=== PATIENT | female | born 1990 | race African-American/Black ===

== ENCOUNTER 2018-04-26 12:39 | Emergency (ER) | payer SELFPAY ==
[2018-04-26] MEDS ORDERED: Ondansetron ODT 4 MG TAB ONE (13:04)
[2018-04-26 13:18] LABS: Pregnancy Test - Urine (BHCG) Negative (Negative); Pregu Control Background? CLEAR/WHITE (CLR/WHITE); Pregu Control Bar Appear? YES (CONTROL BAR)
[2018-04-26 13:57] LABS: Bilirubin Negative (Negative); Blood, Urine Negative (Negative); Clarity CLEAR (Clear); Glucose, Urine (Dipstick) Negative (Negative); Leukocyte Negative (Negative); Nitrite Negative (Negative); Protein, Urine (Dipstick) Negative (Neg-Trace); pH, Urine 6.5 (5.0-9.0)
== END 2018-04-26 14:33 | disposition home or self-care (01) ==
LOC: ERS 12:39
DX: R11.2 Nausea with vomiting, unspecified (principal); F17.210 Nicotine dependence, cigarettes, uncomplicated
CPT/HCPCS: 81003; 81025; 99284; Q0162

== ENCOUNTER 2019-12-15 08:27 | Emergency (ER) | payer BC ==
[2019-12-15 08:56] LABS: #Lymphocytes 1.3 thou/uL (1.20-3.40); #Monocytes 0.4 thou/uL (0.11-0.59); #Neutrophils 3.3 thou/uL (1.40-6.50); %Basophils 0.7 % (0.0-1.0); %Eosinophils 0.7 % (0.0-10.0); %Lymphocytes 25.5 % (21.0-51.0); %Monocytes 8.1 % (0.0-10.0); %Neutrophils 64.9 % (42.0-75.0); Hemoglobin 11.9 g/dL (12.0-16.0); Mean Corpuscular HGB CONC 33.1 g/dL (32.0-36.0); Mean Corpuscular Hemoglobin 30.4 pg (27.0-31.0); Mean Platelet Volume 8.2 fL (7.4-10.4); Platelet Count 181 thou/uL (130-400); RBC Distribution Width 12.1 % (11.5-14.5); Red Blood Cell (RBC) Count 3.92 mill/uL (4.20-5.40); White Blood Cell (WBC) Count 5.1 thou/uL (4.8-10.8)
--- NOTE | 2019-12-15 09:38 | ULT ---
Obstetric sonogram HISTORY: Early . Pelvic pain and cramping. FINDINGS: Single intrauterine gestation in variable presentation. Measurements correlate with 10 week s 6 days gestational age giving an estimated date of delivery of 07/06/2020. Amniotic fluid is within normal limits. Heart motion at 162 bpm. Small yolk sac remains. Minimal fluid in the cervix. N o free fluid in the pelvis. The ovaries are not visualized with transabdominal or transvaginal imaging. IMPRESSION: Single intrauterine gestation. Estimated gestational age 10 weeks 6 days. No significant abnormalities are demonstrated.
[2019-12-15] MEDS ORDERED: Acetaminophen 500 MG TAB ONE (10:00)
[2019-12-15 10:12] LABS: Bilirubin Negative (Negative); Blood, Urine Negative (Negative); Glucose, Urine (Dipstick) Negative (Negative); Leukocyte Negative (Negative); Nitrite Negative (Negative); Protein, Urine (Dipstick) Negative (Neg-Trace)
[2019-12-15 10:13] LABS: Clarity Clear (Clear)
[2019-12-18 00:54] LABS: Chlamydia by PCR Not Detected (NotDetected); GC by PCR Not Detected (NotDetected)
== END 2019-12-15 10:30 | disposition home or self-care (01) ==
LOC: ERS 08:27
DX: O20.0 Threatened abortion (principal); O23.591 Infection of other part of genital tract in pregnancy, first trimester; B96.89 Other specified bacterial agents as the cause of diseases classified elsewhere; Z3A.10 10 weeks gestation of pregnancy
CPT/HCPCS: 36415; 76856; 81003; 84702; 85025; 86900; 86901; 87480; 87491; 87510; 87591; 87660

== ENCOUNTER 2020-04-06 14:46 | Emergency (ER) | payer BC, OTHER ==
[~2020-04-06 14:46] MED LIST: Iopamidol 370 76% 50 ML VIAL FS ONE; Iopamidol-370 76% 500 ML 1 ML ONE
[2020-04-06] MEDS ORDERED: Morphine 4 MG/ML VIAL ONE (15:10)
[2020-04-06] MEDS ORDERED: Ondansetron PF 4 MG/2 ML Vial ONE (15:10)
[2020-04-06 15:18] LABS: #Basophils 0.1 thou/uL (0.0-0.2); #Lymphocytes 1.5 thou/uL (1.20-3.40); #Monocytes 0.3 thou/uL (0.11-0.59); #Neutrophils 2.6 thou/uL (1.40-6.50); %Basophils 1.2 % (0.0-1.0); %Eosinophils 0.8 % (0.0-10.0); %Lymphocytes 33.7 % (21.0-51.0); %Monocytes 7.4 % (0.0-10.0); Hemoglobin 11.7 g/dL (12.0-16.0); Mean Corpuscular HGB CONC 33.3 g/dL (32.0-36.0); Mean Corpuscular Hemoglobin 30.5 pg (27.0-31.0); Mean Corpuscular Volume 91.6 fL (78.0-98.0); Mean Platelet Volume 8.8 fL (7.4-10.4); Platelet Count 171 thou/uL (130-400); RBC Distribution Width 10.9 % (11.5-14.5); Red Blood Cell (RBC) Count 3.83 mill/uL (4.20-5.40); White Blood Cell (WBC) Count 4.5 thou/uL (4.8-10.8)
[2020-04-06 15:28] LABS: BHCG - Serum Negative (NEGATIVE); Pregs Control Background? CLEAR/WHITE (CLR/WHITE); Pregs Control Bar Appear? YES (CONTROL BAR)
[2020-04-06 15:35] LABS: ALT (SGPT) 12 U/L (8-55); AST (SGOT) 17 U/L (5-34); Albumin 3.8 g/dL (3.5-5.0); Alkaline Phosphatase 35 U/L (40-110); Anion Gap 10 mmol/L (10-20); BUN (Urea Nitrogen) 13 mg/dL (7.0-18.7); Bilirubin, Total 0.7 mg/dL (0.2-1.2); Calc. Creatinine Clearance 0 mL/min (70-130); Calcium 8.9 mg/dL (7.8-10.44); Carbon Dioxide 24 mmol/L (22-29); Chloride 104 mmol/L (98-107); Estimated GFR-MDRD 89; Globulin 3.3 g/dL (2.4-3.5); Glucose 77 mg/dL (70-105); Potassium 3.8 mmol/L (3.5-5.1); Protein, Total 7.1 g/dL (6.0-8.3); Sodium 134 mmol/L (136-145)
[2020-04-06 15:45] LABS: Bilirubin Negative (Negative); Blood, Urine Negative (Negative); Clarity Clear (Clear); Glucose, Urine (Dipstick) Normal (Negative); Ketone, Urine Negative (Negative); Leukocyte Negative Leu/uL (Negative); Nitrite Negative (Negative); Protein, Urine (Dipstick) Negative (Neg-Trace); Specific Gravity, Urine 1.024 (1.002-1.036)
--- NOTE | 2020-04-06 16:21 | CT ---
CT ABDOMEN WITH CONTRAST CT PELVIS WITH CONTRAST: DATE: 04/06/2020 HISTORY: 29-year-old female with acute onset of right lower quadrant abdominal pain. Dr. Hillman discussed the findings and recommendation by telephone with practitioner Wendy Garzon at 4:07 PM 04/06/2020. COMPARISON: None TECHNIQUE: IV injection of iodinated contrast media: administered. Oral contrast media:Not administered FINDINGS: Lack of visceral fat makes it difficult to separate small bowel loops from appendix without oral cont rast. There is a tubular structure in the right lower quadrant of the abdominal cavity at the pelvic inlet with a caliber of 9 mm. It is uncertain whether this is an inflamed appendix or a collapsed loop of ileum. The former is slightly favored. There is no abscess, pneumoperitoneum or small bowel dilation. Moderately large amount of colonic stool throughout the colon. Ring shaped lucency in the vaginal cavity is probably a pessary. Urinary bladder is incompletely distended. Small amount of free fluid in cul-de-sac sac is probably physiologic in a female patient of this age. Abdominal aorta, kidneys, liver, spleen, pancreas, and adrenals, are unremarkable. Lung bases are renay ar. IMPRESSION: 1) equivocal for early acute appendicitis. Depending on the preference of the consulting general surg jaylen, this could be further evaluated after administration of water-soluble oral contrast followed by delayed CT scan of the lower abdomen and pelvis in 1.5 to 2 hours. 2) pessary 3) possible constipation
[2020-04-06] MEDS ORDERED: Ketorolac Tromethamine 30 MG/ML VIAL ONE (16:31)
--- NOTE | 2020-04-06 20:16 | CT ---
CT ABDOMEN WITH CONTRAST CT PELVIS WITH CONTRAST: DATE: 04-06-2020 TIME: 7:11 P.M. HISTORY: 29-year-old female with right lower quadrant abdominal pain. Earlier study performed at 3:50 p.m. was equivocal for acute appendicitis. TECHNIQUE: IV iodinated contrast media: Repeat injection of 80 mL Isovue 370 Oral contrast media: PO Isovue Single phase abdomen and pelvis. FINDINGS: The presence of oral contrast material demonstrates that what was thought to be the cecum on the yamilet ier CT is actually of a portion of a very redundant, ptotic transverse colon reaching the pelvic inle t. What was thought to be an inflamed appendix near that in the right lower quadrant at the pelvic in let is no longer visualized, and was consistent with a collapsed loop of ileum. The oral contrast also demonstrates that the cecum is actually located high in the right upper quadra nt of the abdominal cavity. From it, an air filled, normal long appendix arises, with distal tip in M orrison's pouch. No adjacent fat stranding. IMPRESSION: 1. Normal appendix located high in the right upper quadrant of the abdominal cavity arising from a hi gh cecum. 2. Redundant, ptotic transverse colon. 3. No acute pathology. TRACY Proctor POS: TOSHA
[2020-04-07 21:07] LABS: Chlamydia by PCR Not Detected (NotDetected); GC by PCR Not Detected (NotDetected)
== END 2020-04-06 20:42 | disposition home or self-care (01) ==
LOC: ERS 14:46
DX: R10.31 Right lower quadrant pain (principal)
CPT/HCPCS: 36415; 74177; 80053; 81003; 83605; 84703; 85025; 87480; 87491; 87510; 87591; 87660; 96361; 96374; 96375; J1885; J2270; J2405; Q9967

== ENCOUNTER → 2020-09-23 | Emergency (ER) | payer BC ==
[2020-09-23 06:08] LABS: SARS-CoV-2 MS2 Positive; SARS-CoV-2 N Gene Negative; SARS-CoV-2 S Gene Negative; SARS-CoV-2 by NAA Not Detected (NotDetected); SARS-CoV-2 orf1ab Negative
== END ==
LOC: ERS 01:21
DX: J02.9 Acute pharyngitis, unspecified (principal); R05 Cough; R11.2 Nausea with vomiting, unspecified; Z20.828 Contact with and (suspected) exposure to other viral communicable diseases; F17.210 Nicotine dependence, cigarettes, uncomplicated
CPT/HCPCS: 87635; 99283; U0003

== ENCOUNTER 2022-11-27 19:05 | Inpatient (IN) | payer BC, OTHER ==
[~2022-11-27 19:05] MED LIST changes: -Iopamidol 370 76% 50 ML VIAL FS ONE
[2022-11-27] MEDS ORDERED: Ketorolac Tromethamine 30 MG/ML VIAL ONE (19:48)
[2022-11-27] MEDS ORDERED: Ondansetron PF 4 MG/2 ML Vial ONE (19:48)
[2022-11-27] MEDS ORDERED: Dicyclomine 20 MG/2 ML VIAL ONE (19:49)
[2022-11-27] MEDS ORDERED: HYDROmorphone 0.5 MG/0.5 ML SYRINGE ONE ×2 (20:00→22:02)
[2022-11-27 20:05] LABS: #Basophils 0.1 thou/uL (0.0-0.2); #Eosinphils 0.2 thou/uL (0.0-0.7); #Lymphocytes 1.8 thou/uL (1.20-3.40); #Monocytes 0.5 thou/uL (0.11-0.59); #Neutrophils 4.5 thou/uL (1.40-6.50); %Basophils 0.8 % (0.0-1.0); %Lymphocytes 26.1 % (21.0-51.0); %Monocytes 6.7 % (0.0-10.0); %Neutrophils 63.5 % (42.0-75.0); Hemoglobin 11.4 g/dL (12.0-16.0); Mean Corpuscular HGB CONC 33.8 g/dL (32.0-36.0); Mean Corpuscular Hemoglobin 31.6 pg (27.0-31.0); Mean Corpuscular Volume 93.6 fl (78.0-98.0); Mean Platelet Volume 7.4 fL (7.4-10.4); Platelet Count 398 10x3/uL (130-400); RBC Distribution Width 11.7 % (11.5-14.5); Red Blood Cell (RBC) Count 3.59 mill/uL (4.20-5.40)
[2022-11-27 20:28] LABS: ALT (SGPT) 25 U/L (8-55); AST (SGOT) 41 U/L (5-34); Albumin 4.1 g/dL (3.5-5.0); Alkaline Phosphatase 384 U/L (40-110); Anion Gap 20 mmol/L (10-20); BUN (Urea Nitrogen) 12 mg/dL (7.0-18.7); Bilirubin, Total 0.5 mg/dL (0.2-1.2); Calc. Creatinine Clearance 0 mL/min (70-130); Carbon Dioxide 23 mmol/L (22-29); Chloride 100 mmol/L (98-107); Estimated GFR 110; Glucose 98 mg/dL (70-105); Lipase 22 U/L (8-78); Potassium 4.8 mmol/L (3.5-5.1); Protein, Total 9.1 g/dL (6.0-8.3); Sodium 138 mmol/L (136-145)
[2022-11-27 20:42] LABS: Bilirubin Negative (Negative); Blood, Urine Negative (Negative); Clarity Clear (Clear); Glucose, Urine (Dipstick) Normal (Negative); Ketone, Urine Negative (Negative); Leukocyte Negative Leu/uL (Negative); Nitrite Negative (Negative); Protein, Urine (Dipstick) 10 mg/dL (Neg-Trace); Specific Gravity, Urine 1.025 (1.002-1.036); Urobilinogen 6 mg/dL (Less than 2)
[2022-11-27 20:52] LABS: Pregnancy Test - Urine (BHCG) Negative (Negative); Pregu Control Background? CLEAR/WHITE (CLR/WHITE); Pregu Control Bar Appear? YES (CONTROL BAR); Specific Gravity 1.025 (1.002-1.036)
[2022-11-27 22:39] LABS: INR-International Normal Ratio 1.1
[2022-11-27 22:41] LABS: PTT 37.2 sec (22.9-36.1)
[2022-11-27] MEDS ORDERED: Heparin 10,000 UNITS/ 10 ML VIAL ONE ×2 (23:04→23:27)
[2022-11-27] MEDS ORDERED: Heparin 25,000 units/D5W 500 ML ONE (23:04)
[2022-11-28 03:26] VITALS: BMI 23.3
[2022-11-28] MEDS ORDERED: Morphine 2 MG/ML VIAL SLOW IVP PRN (03:45)
[2022-11-28] MEDS ORDERED: Heparin 10,000 UNITS/ 10 ML VIAL SLOW IVP SCH (03:45)
[2022-11-28 04:26] LABS: Hemoglobin 9.8 g/dL (12.0-16.0); Platelet Count 262 10x3/uL (130-400)
[2022-11-28] MEDS: Sodium Chloride 0.9% 1,000 ML IV SCH ×2 (05:29→17:03)
[2022-11-28 06:11] LABS: PTT 239.5 sec (22.9-36.1)
[2022-11-28] MEDS: HYDROcodone/Acetaminophen 10/325 mg Tablet PO PRN ×2 (15:51→22:10)
[2022-11-28] MEDS ORDERED: Docusate 100 MG CAP PO PRN (16:51)
[2022-11-28] MEDS: Ondansetron ODT 4 MG TAB PO PRN (17:01)
[2022-11-28] MEDS: Famotidine/PF 20 mg/2ml Vial SLOW IVP SCH (20:22)
[2022-11-28] MEDS: Heparin 25,000 units/D5W 500 ML IVPB SCH (22:01)
[2022-11-29] MEDS: Sodium Chloride 0.9% 1,000 ML IV SCH ×2 (03:25→15:37)
[2022-11-29 05:30] LABS: #Eosinphils 0.2 thou/uL (0.0-0.7); #Lymphocytes 1.8 thou/uL (1.20-3.40); #Monocytes 0.6 thou/uL (0.11-0.59); #Neutrophils 3.1 thou/uL (1.40-6.50); %Basophils 0.1 % (0.0-1.0); Hemoglobin 9.9 g/dL (12.0-16.0); Mean Corpuscular HGB CONC 32.9 g/dL (32.0-36.0); Mean Corpuscular Hemoglobin 30.9 pg (27.0-31.0); Mean Corpuscular Volume 93.8 fl (78.0-98.0); Mean Platelet Volume 7.6 fL (7.4-10.4); Platelet Count 273 10x3/uL (130-400); RBC Distribution Width 11.6 % (11.5-14.5); Red Blood Cell (RBC) Count 3.19 mill/uL (4.20-5.40); White Blood Cell (WBC) Count 5.7 10x3/uL (4.8-10.8)
[2022-11-29 05:53] LABS: ALT (SGPT) 20 U/L (8-55); AST (SGOT) 33 U/L (5-34); Albumin 3.4 g/dL (3.5-5.0); Alkaline Phosphatase 316 U/L (40-110); Anion Gap 13 mmol/L (10-20); BUN (Urea Nitrogen) 4 mg/dL (7.0-18.7); Bilirubin, Total 0.5 mg/dL (0.2-1.2); Calc. Creatinine Clearance 156 mL/min (70-130); Calcium 9.1 mg/dL (7.8-10.44); Carbon Dioxide 23 mmol/L (22-29); Chloride 105 mmol/L (98-107); Estimated GFR 121; Globulin 4.4 g/dL (2.4-3.5); Glucose 81 mg/dL (70-105); Potassium 3.7 mmol/L (3.5-5.1); Protein, Total 7.8 g/dL (6.0-8.3); Sodium 137 mmol/L (136-145)
[2022-11-29] MEDS: Famotidine/PF 20 mg/2ml Vial SLOW IVP SCH ×2 (08:26→20:21)
[2022-11-29] MEDS: HYDROcodone/Acetaminophen 10/325 mg Tablet PO PRN ×3 (08:27→20:55)
[2022-11-29] MEDS: Morphine 2 MG/ML VIAL SLOW IVP PRN (22:32)
[2022-11-29] MEDS: Nitroglycerin 0.4 MG TAB (25 Tab Bottle) SL PRN ×2 (22:49→23:00)
[2022-11-29] MEDS: Heparin 25,000 units/D5W 500 ML IVPB SCH (23:29)
[2022-11-29 23:33] LABS: Troponin I Less than 0.010 ng/mL (< 0.028)
[2022-11-29] MEDS ORDERED: Lidocaine 2% Viscous Solution 10 ML, Aluminum & Magnesium Hydroxide 30 ML SSW SCH (23:59)
[2022-11-29] MEDS ORDERED: Morphine 2 MG/ML VIAL SLOW IVP SCH (23:59)
[2022-11-30 04:57] LABS: #Eosinphils 0.2 thou/uL (0.0-0.7); #Lymphocytes 1.5 thou/uL (1.20-3.40); #Monocytes 0.5 thou/uL (0.11-0.59); #Neutrophils 4.4 thou/uL (1.40-6.50); %Basophils 0.1 % (0.0-1.0); %Eosinophils 3.7 % (0.0-10.0); %Lymphocytes 22.5 % (21.0-51.0); %Monocytes 6.9 % (0.0-10.0); %Neutrophils 66.8 % (42.0-75.0); Hemoglobin 9.6 g/dL (12.0-16.0); Mean Corpuscular HGB CONC 32.2 g/dL (32.0-36.0); Mean Corpuscular Hemoglobin 30.4 pg (27.0-31.0); Mean Corpuscular Volume 94.2 fl (78.0-98.0); Mean Platelet Volume 7.9 fL (7.4-10.4); Platelet Count 310 10x3/uL (130-400); RBC Distribution Width 11.7 % (11.5-14.5); Red Blood Cell (RBC) Count 3.16 mill/uL (4.20-5.40); White Blood Cell (WBC) Count 6.6 10x3/uL (4.8-10.8)
[2022-11-30 04:58] LABS: Hemoglobin 9.6 g/dL (12.0-16.0); Platelet Count 309 10x3/uL (130-400)
[2022-11-30] MEDS: HYDROcodone/Acetaminophen 10/325 mg Tablet PO PRN ×3 (04:58→17:20)
[2022-11-30] MEDS: Sodium Chloride 0.9% 1,000 ML IV SCH ×2 (04:59→18:32)
[2022-11-30] MEDS: Ondansetron ODT 4 MG TAB PO PRN ×2 (05:09→22:16)
[2022-11-30 05:36] LABS: Anion Gap 12 mmol/L (10-20); BUN (Urea Nitrogen) Less than 4 mg/dL (7.0-18.7); Calc. Creatinine Clearance 164 mL/min (70-130); Calcium 9.3 mg/dL (7.8-10.44); Carbon Dioxide 25 mmol/L (22-29); Chloride 105 mmol/L (98-107); Estimated GFR 123; Glucose 91 mg/dL (70-105); Potassium 3.7 mmol/L (3.5-5.1); Sodium 138 mmol/L (136-145)
[2022-11-30] MEDS: Famotidine/PF 20 mg/2ml Vial SLOW IVP SCH (08:21)
[2022-11-30] MEDS: Morphine 2 MG/ML VIAL SLOW IVP PRN ×4 (08:25→22:10)
[2022-11-30] MEDS ORDERED: Pantoprazole 40 MG VIAL IVP SCH (13:13)
[2022-11-30] MEDS ORDERED: Senokot 8.6 MG TAB PO PRN (20:38)
[2022-11-30] MEDS: Heparin 25,000 units/D5W 500 ML IVPB SCH (20:55)
[2022-11-30] MEDS: Pantoprazole 40 MG VIAL IVP SCH (21:08)
[2022-12-01] MEDS: Morphine 2 MG/ML VIAL SLOW IVP PRN ×5 (04:23→21:03)
[2022-12-01 04:50] LABS: #Eosinphils 0.2 thou/uL (0.0-0.7); #Lymphocytes 1.4 thou/uL (1.20-3.40); #Monocytes 0.5 thou/uL (0.11-0.59); #Neutrophils 3.4 thou/uL (1.40-6.50); %Basophils 0.2 % (0.0-1.0); %Eosinophils 3.7 % (0.0-10.0); %Lymphocytes 25.8 % (21.0-51.0); %Monocytes 8.9 % (0.0-10.0); %Neutrophils 61.4 % (42.0-75.0); Mean Corpuscular HGB CONC 32.7 g/dL (32.0-36.0); Mean Corpuscular Volume 94.7 fl (78.0-98.0); Mean Platelet Volume 7.9 fL (7.4-10.4); Platelet Count 275 10x3/uL (130-400); RBC Distribution Width 11.8 % (11.5-14.5); Red Blood Cell (RBC) Count 3.22 mill/uL (4.20-5.40); White Blood Cell (WBC) Count 5.6 10x3/uL (4.8-10.8)
[2022-12-01 05:12] LABS: Anion Gap 13 mmol/L (10-20); BUN (Urea Nitrogen) Less than 4 mg/dL (7.0-18.7); Calc. Creatinine Clearance 161 mL/min (70-130); Calcium 9.2 mg/dL (7.8-10.44); Carbon Dioxide 25 mmol/L (22-29); Chloride 102 mmol/L (98-107); Estimated GFR 122; Glucose 77 mg/dL (70-105); Potassium 3.4 mmol/L (3.5-5.1); Sodium 137 mmol/L (136-145)
[2022-12-01] MEDS: Pantoprazole 40 MG VIAL IVP SCH ×2 (07:41→21:04)
[2022-12-01] MEDS: Sodium Chloride 0.9% 1,000 ML IV SCH ×2 (09:08→21:09)
[2022-12-01] MEDS: HYDROcodone/Acetaminophen 10/325 mg Tablet PO PRN ×4 (09:41→23:54)
[2022-12-01] MEDS: Heparin 25,000 units/D5W 500 ML IVPB SCH (19:24)
[2022-12-01] MEDS: Ondansetron ODT 4 MG TAB PO PRN (23:58)
[2022-12-02] MEDS: Morphine 2 MG/ML VIAL SLOW IVP PRN ×4 (03:34→23:35)
[2022-12-02] MEDS ORDERED: Ondansetron PF 4 MG/2 ML Vial IVP PRN (04:18)
[2022-12-02] MEDS ORDERED: Morphine 2 MG/ML VIAL SLOW IVP SCH (04:30)
[2022-12-02] MEDS ORDERED: Polyethylene Glycol 3350 17 GM Packet PO SCH (04:30)
[2022-12-02 04:55] LABS: Hemoglobin 10.7 g/dL (12.0-16.0); Platelet Count 303 10x3/uL (130-400)
[2022-12-02 05:00] LABS: #Eosinphils 0.2 thou/uL (0.0-0.7); #Lymphocytes 1.5 thou/uL (1.20-3.40); #Monocytes 0.5 thou/uL (0.11-0.59); #Neutrophils 3.6 thou/uL (1.40-6.50); %Basophils 0.5 % (0.0-1.0); %Eosinophils 3.9 % (0.0-10.0); %Lymphocytes 25.8 % (21.0-51.0); %Monocytes 7.8 % (0.0-10.0); Hemoglobin 10.7 g/dL (12.0-16.0); Mean Corpuscular HGB CONC 32.6 g/dL (32.0-36.0); Mean Corpuscular Hemoglobin 31.1 pg (27.0-31.0); Mean Corpuscular Volume 95.2 fl (78.0-98.0); Mean Platelet Volume 7.5 fL (7.4-10.4); Platelet Count 289 10x3/uL (130-400); RBC Distribution Width 11.9 % (11.5-14.5); Red Blood Cell (RBC) Count 3.46 mill/uL (4.20-5.40); White Blood Cell (WBC) Count 5.8 10x3/uL (4.8-10.8)
[2022-12-02 05:16] LABS: ALT (SGPT) 19 U/L (8-55); AST (SGOT) 34 U/L (5-34); Albumin 3.5 g/dL (3.5-5.0); Alkaline Phosphatase 324 U/L (40-110); Anion Gap 12 mmol/L (10-20); BUN (Urea Nitrogen) Less than 4 mg/dL (7.0-18.7); Bilirubin, Total 0.5 mg/dL (0.2-1.2); Calc. Creatinine Clearance 161 mL/min (70-130); Calcium 8.9 mg/dL (7.8-10.44); Carbon Dioxide 27 mmol/L (22-29); Chloride 102 mmol/L (98-107); Estimated GFR 122; Globulin 3.9 g/dL (2.4-3.5); Glucose 84 mg/dL (70-105); Potassium 3.8 mmol/L (3.5-5.1); Protein, Total 7.4 g/dL (6.0-8.3); Sodium 137 mmol/L (136-145)
[2022-12-02] MEDS: HYDROcodone/Acetaminophen 10/325 mg Tablet PO PRN ×3 (08:06→20:56)
[2022-12-02] MEDS: Pantoprazole 40 MG VIAL IVP SCH ×2 (08:07→20:53)
[2022-12-02] MEDS: Polyethylene Glycol 3350 17 GM Packet PO SCH ×2 (08:07→20:53)
[2022-12-02] MEDS: Apixaban 5 MG TAB PO SCH ×2 (08:07→20:52)
[2022-12-02] MEDS: Sodium Chloride 0.9% 1,000 ML IV SCH (10:26)
[2022-12-02] MEDS: Ondansetron ODT 4 MG TAB PO PRN (20:57)
[2022-12-03] MEDS: Sodium Chloride 0.9% 1,000 ML IV SCH ×2 (01:06→13:08)
[2022-12-03] MEDS: HYDROcodone/Acetaminophen 10/325 mg Tablet PO PRN ×2 (03:52→13:59)
[2022-12-03] MEDS: Polyethylene Glycol 3350 17 GM Packet PO SCH (10:11)
[2022-12-03] MEDS: Apixaban 5 MG TAB PO SCH (10:11)
[2022-12-03] MEDS: Pantoprazole 40 MG VIAL IVP SCH (10:11)
[2022-12-03] MEDS: Morphine 2 MG/ML VIAL SLOW IVP PRN (10:12)
[2022-12-03 15:48] VITALS: BP 149/84; TEMP 98.5
== END 2022-12-03 18:02 | disposition home or self-care (01) | DRG 394 ==
LOC: ERS 19:05 → ERHOLD 23:26 → NEURO 11-28 02:50 → 2NO 11-29 09:59
PROVIDERS: ADMIT Internal Medicine; ATTEND Internal Medicine
DX: K55.039 Acute (reversible) ischemia of large intestine, extent unspecified (principal); C16.9 Malignant neoplasm of stomach, unspecified; C78.00 Secondary malignant neoplasm of unspecified lung; C78.7 Secondary malignant neoplasm of liver and intrahepatic bile duct; C78.02 Secondary malignant neoplasm of left lung; C78.01 Secondary malignant neoplasm of right lung; Z20.822 Contact with and (suspected) exposure to COVID-19; R07.9 Chest pain, unspecified; Z79.899 Other long term (current) drug therapy
CPT/HCPCS: 36415; 71275; 74174; 74176; 74177; 80048; 80053; 81003; 81025; 82378; 83605; 83690; 84484; 85014; 85018; 85025; 85049; 85610; 85730; 86140; 93005; 93010; 96365; 96366; 96372; 96375; 96376; C9113; J1170; J1644; J1885; J2272; J2405; J7050; Q0162; Q9967; S0028; U0003; U0005